=== PATIENT | male | born 1985 | race Caucasian/White ===

== ENCOUNTER 2019-09-20 08:54 | Emergency (ER) | payer SELFPAY ==
[~2019-09-20] VITALS: Ht 167.6 cm; Wt 57.2 kg
--- NOTE | 2019-09-20 09:36 | NUR ---
requested records from [facility].
[2019-09-20] MEDS ORDERED: MECLIZINE CHEWABLE 25 MG TAB PO ONE (10:00)
[2019-09-20] MEDS ORDERED: SODIUM CHLORIDE FLUSH 10ML SYR IVF ONE (10:00)
[2019-09-20] MEDS ORDERED: SODIUM CHLORIDE 0.9% 1,000ML IVBOLUS ONE (10:00)
--- NOTE | 2019-09-20 10:04 | NUR ---
PT STATES D/C FROM [facility] 2 DAYS AGO FOR CYST LEFT NECK. BANDAGE IN PLACED WITH NO DISCHARGE. FEELS DIZZY AND WEAK. LABS DRAWN AND FLUIDS INFUSING PER MAR
[2019-09-20] MEDS ORDERED: MECLIZINE CHEWABLE 25 MG TAB ONE (10:08)
[2019-09-20 10:10] LABS: BASOPHILS # (AUTO) 0.04 x10^3/uL (0-0.1); BASOPHILS % (AUTO) 1 % (0-1); EOSINOPHILS # (AUTO) 0.12 x10^3/uL (0-0.4); EOSINOPHILS % (AUTO) 2 % (1-7); LYMPHOCYTES # (AUTO) 1.99 x10^3/uL (1-3.4); LYMPHOCYTES % (AUTO) 27 % (22-44); MD NO; MEAN CORPUSCULAR HEMOGLOBIN 30.5 pg (27.5-34.5); MEAN CORPUSCULAR HGB CONC 33.7 g/dL (33.2-36.2); MEAN CORPUSCULAR VOLUME 90.5 fL (81-97); MEAN PLATELET VOLUME 7.2 fL (7.4-10.4); MONOCYTES # (AUTO) 0.83 x10^3/uL (0.2-0.8); MONOCYTES % (AUTO) 11 % (2-9); NEUTROPHILS # (AUTO) 4.49 x10^3/uL (1.8-6.8); NEUTROPHILS % (AUTO) 60 % (42-75); PLATELET COUNT 382 x10^3/uL (130-400); RED BLOOD COUNT 5.01 x10^6/uL (4.38-5.82); RED CELL DISTRIBUTION WIDTH 12.7 % (9.4-14.8)
[2019-09-20 10:20] LABS: ALBUMIN 3.3 g/dL (3.4-5.0); ANION GAP 7 mmol/L (5-15); CALCIUM 9.4 mg/dL (8.5-10.1); CHLORIDE 104 mmol/L (98-107); CREATININE 0.96 mg/dL (0.7-1.3)
[2019-09-20] MEDS ORDERED: OMNIPAQUE 350 MG/ML, 100ML BOTTLE ONE (11:19)
[2019-09-20 11:44] VITALS: BP 114/69
== END 2019-09-20 12:45 | disposition home or self-care (01) ==
LOC: ED 12:04
DX: L04.0 Acute lymphadenitis of face, head and neck (principal); R42 Dizziness and giddiness; R00.0 Tachycardia, unspecified
CPT/HCPCS: 36415; 70491; 80048; 82040; 83605; 84145; 85025; 87040; 93005; 96360; 99285; J7030; Q9967

== ENCOUNTER 2020-06-29 12:46 | Emergency (ER) | payer MEDICAID ==
[~2020-06-29] VITALS: Ht 160 cm; Wt 60.5 kg
[2020-06-29 12:49] VITALS: BP 123/74
--- NOTE | 2020-06-29 14:50 | NUR ---
PT TO ROOM FROM LOBBY. THIS IS A 35 YEAR OLD MALE WHO C.O OF SWOLLEN RIGHT MIDDLE AND INDEX FINGER PAIN AND SWELLING DUE TO "HITTING A MIRROR".
[2020-06-29] MEDS ORDERED: DIPH,PERTUSS(ACELL),TET VAC/PF 0.5 ML IM-VACC ONE ×2 (16:20→16:30)
--- NOTE | 2020-06-29 17:05 | NUR ---
Patient/Caregiver given discharge instructions and they have confirmed that they understand the instructions. Patient ambulatory with steady gait.
== END 2020-06-29 17:08 | disposition home or self-care (01) ==
LOC: ED 16:50
DX: S61.212A Laceration without foreign body of right middle finger without damage to nail, initial encounter (principal); X58.XXXA Exposure to other specified factors, initial encounter; Y93.89 Activity, other specified; Y92.488 Other paved roadways as the place of occurrence of the external cause; Y99.8 Other external cause status
CPT/HCPCS: 29130; 90471; 90715; 99283

== ENCOUNTER 2020-10-10 03:57 | Emergency (ER) | payer MEDICAID ==
[~2020-10-10] VITALS: Ht 154.9 cm; Wt 58.8 kg
[2020-10-10 03:59] VITALS: BP 135/97
[2020-10-10] MEDS ORDERED: HYDROcodone/APAP 5/325 TABLET ONE (04:55)
[2020-10-10] MEDS ORDERED: HYDROcodone/APAP 5/325 TABLET PO ONE (05:00)
--- NOTE | 2020-10-10 05:07 | NUR ---
Pt states having tooth pain. Pt medicated per order. Pt instructed to f/u with dentist. List given. Pt states understanding. Patient/Caregiver given discharge instructions and they have confirmed that they understand the instructions. Patient ambulatory with steady gait.
== END 2020-10-10 05:10 | disposition home or self-care (01) ==
LOC: ED 04:45
DX: K02.9 Dental caries, unspecified (principal); F17.210 Nicotine dependence, cigarettes, uncomplicated
CPT/HCPCS: 99283

== ENCOUNTER 2020-11-29 02:58 | Emergency (ER) | payer MEDICAID ==
[~2020-11-29] VITALS: Ht 167.6 cm; Wt 57.9 kg
[2020-11-29] MEDS ORDERED: HYDROcodone/APAP 5/325 TABLET ONE (03:25)
[2020-11-29] MEDS ORDERED: HYDROcodone/APAP 5/325 TABLET PO ONE (03:30)
--- NOTE | 2020-11-29 03:33 | NUR ---
PT MEDICATED PER EMAR. RESTING ON [facility] W/ CALL LIGHT IN REACH AND SIDE RAILS UPX2. NADN.
[2020-11-29 03:41] VITALS: BP 121/78
--- NOTE | 2020-11-29 03:43 | NUR ---
VSS, Patient given discharge instructions and they have confirmed that they understand the instructions. Patient ambulatory with steady gait. SILVIAN.
== END 2020-11-29 03:45 | disposition home or self-care (01) ==
LOC: ED 03:28
DX: H65.01 Acute serous otitis media, right ear (principal); K08.89 Other specified disorders of teeth and supporting structures
CPT/HCPCS: 99283

== ENCOUNTER 2021-04-03 20:11 | Emergency (ER) | payer MEDICAID ==
[~2021-04-03] VITALS: Ht 167.6 cm; Wt 57.4 kg
[2021-04-03 20:18] VITALS: BP 117/75
--- NOTE | 2021-04-03 20:39 | NUR ---
Patient/Caregiver given discharge instructions and they have confirmed that they understand the instructions. Patient ambulatory with steady gait. NAD, all questions answered appropriately, denies additional needs at this time. No personal belongings left in room after discharge.
== END 2021-04-03 20:58 | disposition home or self-care (01) ==
LOC: ED 20:30
DX: K08.89 Other specified disorders of teeth and supporting structures (principal); F17.200 Nicotine dependence, unspecified, uncomplicated; R59.0 Localized enlarged lymph nodes
CPT/HCPCS: 99283